=== PATIENT | male | born 1980 | race Caucasian/White ===

== ENCOUNTER 2018-02-22 13:10 | Emergency (ER) | payer OTHER ==
[2018-02-22] MEDS: FLUORESCEIN STRIP RIGHT EYE (13:31)
[2018-02-22] MEDS: TETRACAINE 0.5% 4 ML OPH RIGHT EYE (13:31)
== END 2018-02-22 14:01 | disposition home or self-care (01) ==
LOC: FTE 13:10
DX: T15.91XA Foreign body on external eye, part unspecified, right eye, initial encounter (principal); X58.XXXA Exposure to other specified factors, initial encounter; Y92.9 Unspecified place or not applicable
CPT/HCPCS: 99283; Z7502

== ENCOUNTER 2018-07-17 08:08 | Emergency (ER) | payer OTHER ==
[2018-07-17] MEDS: HYDROCODONE/APAP (5/325) TAB PO (08:40)
== END 2018-07-17 10:29 | disposition home or self-care (01) ==
LOC: FTE 08:08
DX: S92.352A Displaced fracture of fifth metatarsal bone, left foot, initial encounter for closed fracture (principal); S93.402A Sprain of unspecified ligament of left ankle, initial encounter; W11.XXXA Fall on and from ladder, initial encounter; Y92.9 Unspecified place or not applicable
CPT/HCPCS: 29505; 73590; 73610; 73630-LT; 99283-25

== ENCOUNTER 2018-07-22 13:51 | Emergency (ER) | payer OTHER | END 2018-07-22 15:56 | disposition home or self-care (01) | LOC: FTE 13:51 | DX: S92.352D Displaced fracture of fifth metatarsal bone, left foot, subsequent encounter for fracture with routine healing (principal); X58.XXXD Exposure to other specified factors, subsequent encounter; Y92.9 Unspecified place or not applicable | CPT/HCPCS: 99282; Z7502 ==